=== PATIENT | male | born 1965 | race Caucasian/White ===

== ENCOUNTER → 2024-05-21 | Day surgery (SDC) | payer BC ==
[~2024-05-21] MED LIST: BACTRIM DS TAB1 EACH PO; CEPHALEXIN500 MG PO; HYOSCYAMINE SULFATE 0.5 MG/ML INJ ONE; LIDOCAINE HCL 2% LOCAL INJ 5 ML SDV VIAL INJ ONE; MEDROL4 M2 PO; PROPOFOL IV EMULSION 10 MG/ML 50 ML VIAL IV ONE
[2024-05-21] MEDS: LACTATED RINGER'S 1,000 ML ONE (08:16)
[2024-05-21 09:23] VITALS: TEMP 97.1
[2024-05-21 09:45] VITALS: BP 116/79; PULSE 103; RESP 18; O2SAT 98
== END | disposition home or self-care (01) ==
LOC: OR 07:11
PROVIDERS: ATTEND Internal Medicine Gastroenterology
DX: R19.5 Other fecal abnormalities (principal); D12.2 Benign neoplasm of ascending colon; K57.30 Diverticulosis of large intestine without perforation or abscess without bleeding; K64.8 Other hemorrhoids; Z71.3 Dietary counseling and surveillance; Z71.89 Other specified counseling; Z01.810 Encounter for preprocedural cardiovascular examination; Z68.24 Body mass index [BMI] 24.0-24.9, adult
CPT/HCPCS: 45380; 93005; J1980; J2001; J2704; J7121; 45378; 45385